=== PATIENT | female | born 1980 | race Caucasian/White ===

== ENCOUNTER 2017-07-26 22:12 | Emergency (ER) | payer OTHER ==
[~2017-07-26] VITALS: Ht 157.5 cm; Wt 131.8 kg
[2017-07-26 22:53] VITALS: BP 120/58
== END 2017-07-26 23:41 | disposition home or self-care (01) ==
LOC: ER 22:13
DX: N93.8 Other specified abnormal uterine and vaginal bleeding (principal); F32.9 Major depressive disorder, single episode, unspecified; F12.10 Cannabis abuse, uncomplicated
CPT/HCPCS: 99283

== ENCOUNTER 2019-05-13 20:18 | Emergency (ER) | payer MEDICAID, OTHER ==
[~2019-05-13] VITALS: Ht 165.1 cm; Wt 113.6 kg
[2019-05-13] MEDS ORDERED: ketorolac tromethamine 15mg/ml inj. IM ONE (21:30)
--- NOTE | 2019-05-13 21:57 | NUR ---
Medicated as ordered for pain. Pt will be discharged to home shortly.
[2019-05-13] MEDS ORDERED: CYCL-1 PO (22:11)
[2019-05-13 22:31] VITALS: BP 134/89
== END 2019-05-13 22:30 | disposition home or self-care (01) ==
LOC: ER 20:19
DX: M54.41 Lumbago with sciatica, right side (principal); F12.90 Cannabis use, unspecified, uncomplicated; F32.9 Major depressive disorder, single episode, unspecified
CPT/HCPCS: 96372; 99283; J1885